=== PATIENT | female | born 1955 | race Two or more races ===

== ENCOUNTER 2018-04-24 11:05 | Day surgery (SDC) | payer BC ==
[2018-04-24] MEDS ORDERED: MIDAZOLAM 1 MG/ML 2 ML INJ ×2 (14:37)
[2018-04-24] MEDS ORDERED: FENTAnyl 50 MCG/ML VIAL (14:37)
== END 2018-04-24 17:12 | disposition home or self-care (01) ==
LOC: GIL 11:05
DX: Z12.11 Encounter for screening for malignant neoplasm of colon (principal)
CPT/HCPCS: 45378